=== PATIENT | female | born 1990 | race American Indian/Alaskan Native ===

== ENCOUNTER 2017-08-31 02:33 | Outpatient (CLI) | payer MEDICAID ==
[2017-08-31 02:57] VITALS: BP 108/73
== END 2017-08-31 06:10 | disposition home or self-care (01) ==
LOC: TRG 02:33
PROVIDERS: ATTEND Obstetrics & Gynecology
DX: O47.1 False labor at or after 37 completed weeks of gestation (principal); Z3A.38 38 weeks gestation of pregnancy
CPT/HCPCS: 59025

== ENCOUNTER 2017-08-31 09:06 | Inpatient (IN) | payer MEDICAID ==
[2017-08-31] MEDS ORDERED: ePHEDrine SULFATE IV PRN (09:44)
[2017-08-31] MEDS ORDERED: SUBLIMAZE IV PRN (09:44)
[2017-08-31] MEDS ORDERED: BRETHINE SUB-Q PRN (09:44)
[2017-08-31] MEDS ORDERED: XYLOCAINE 2% INFILTRATI ONE (09:44)
--- NOTE | 2017-08-31 09:52 | History and Physical Report ---
History of Present Illness Date of examination: 08/31/17 Chief complaint: labor and SROM History of present illness: 27y/o @ 38+4 weeks by stated EDC of 09/10/17 No records to review at time of admission, pt receives care @ [place] She denies any medical hx or complications with . Past History Past Medical History: no pertinent history - Obstetrical History Expected Date of Delivery: 09/10/17 Actual Gestation: 38 Week(s) 4 Day(s) : 1 Para: 0 Hx # Term Pregnancies: 0 Number of Pregnancies: 0 Spontaneous Abortions: 0 Number of Living Children: 0 Medications and Allergies Allergies Allergy/AdvReac Type Severity Reaction Status Date / Time No Known Allergies Allergy Unverified 08/31/17 02:57 Home Medications Medication Instructions Recorded Confirmed Last Taken Type Vit,Calc76/Iron/Folic 1 tab PO DAILY 08/31/17 08/31/17 08/30/17 11:00 History [Pnv 29-1 Tablet] Review of Systems All systems: negative - Vital Signs Vital signs: Vital Signs Pulse BP 84 126/77 08/31/17 09:37 08/31/17 09:37 Temp Pulse Resp BP Pulse Ox 98.4 F 84 18 126/77 08/31/17 09:41 08/31/17 09:37 08/31/17 09:41 08/31/17 09:37 - Physical Exam Breasts: Positive: normal Cardiovascular: Regular rate Lungs: Positive: Clear to auscultation, Normal air movement Abdomen: Positive: normal appearance, soft Genitourinary (Female): Positive: normal external genitalia, normal perenium Vulva: both: normal Vagina: Positive: normal moisture Uterus: Positive: normal size, normal contour Anus/Rectum: Positive: normal perianal skin Extremities: Positive: normal Deep Tendon Reflex Grade: Normal +2 - Obstetrical FHR: auscultation normal Uterine Contraction Monitor Mode: External Uterine Contraction Pattern: Regular Uterine Tone Measurement Phase: Contraction Uterine Contraction Intensity: Strong/Firm Results Result Diagrams: 08/31/17 10:00 All other labs normal. Assessment and Plan 27y/o @ 38+4 weeks, care @ [facility]. SROM @ 0800 with clear fluid, SVE 6/100 with + bloody show. Plan to admit to L&D, treat for unknown GBS , UDS since unknown to this practice and obtain records from [facility]. - Patient Problems (1) 38 weeks gestation of Current Visit: No Status: Acute (2) SROM (spontaneous rupture of membranes) Onset Date: 08/31/17 Current Visit: No Status: Acute
[2017-08-31] MEDS ORDERED: PITOCin/NS 20 UNIT/1000ML DRIP 20 UNITS/1,000 ML BAG IV SCH (10:00)
[2017-08-31] MEDS ORDERED: POLYCILLIN/NS 2 GM/100 ML 2 GM/100 ML BAG IV ONE (10:00)
[2017-08-31] MEDS ORDERED: LACTATED RINGERS 1,000 ML IV SCH (10:00)
[2017-08-31 10:43] LABS: Hematocrit 38.5 % (30.3-42.9); Hemoglobin 12.9 gm/dl (10.1-14.3); Mean Corpuscular HGB Conc 34 % (30-34); Mean Corpuscular Hemoglobin 32 pg (28-32); Mean Corpuscular Volume 94 fl (79-97); Platelet Count 158 K/mm3 (140-440); Red Blood Count 4.08 M/mm3 (3.65-5.03); Red Cell Distribution Width 13.8 % (13.2-15.2)
--- NOTE | 2017-08-31 10:53 | Procedure Note ---
OB Delivery Note - Delivery Date of Delivery: 08/31/17 ( Male) Clinical Recruiter: HARJINDER CALDERON Estimated blood loss: 200cc - Vaginal Delivery presentation: vertex Delivery position: OA Intrapartum events: none Delivery induction: none Delivery monitor: external FHT, external uterine Route of delivery: Delivery placenta: spontaneous Delivery cord: nuchal cord, 3 umbilical vessels Episiotomy: none Delivery laceration: none Anesthesia: none Delivery comments: male infant del over intact perineum, MADDY. Anterior shoulder delivered spontaneously. nuchal cord x 1 - somersaulted through. placed skin to skin on mother's abdomen. 3 vessel cord clamped and cut, placenta del intact and complete. Pit to IVF. Apgars 9/9, wt 6#5oz, EBL 200. Mother and infant remain LDR stable. - Infant A at 1 minute: 9 (6#5oz) at 5 minutes: 9 Gender: Male
[2017-08-31] MEDS ORDERED: TYLENOL PO PRN (12:26)
[2017-08-31] MEDS ORDERED: DERMOPLAST TP PRN (12:26)
[2017-08-31] MEDS ORDERED: LANSINOH TP PRN (12:26)
[2017-08-31] MEDS ORDERED: DULCOLAX PR PRN (12:26)
[2017-08-31] MEDS: MOTRIN PO SCH ×2 (12:26→18:58)
[2017-08-31] MEDS ORDERED: PHENERGAN PO PRN (12:26)
[2017-08-31] MEDS ORDERED: TUCKS PAD TP PRN (12:26)
[2017-08-31] MEDS ORDERED: ZOFRAN IV PRN (12:26)
[2017-08-31] MEDS ORDERED: BENADRYL PO PRN (12:26)
[2017-08-31] MEDS ORDERED: SODIUM CHLORIDE FLUSH SYRINGE 10 ML IV NR (12:26)
[2017-08-31] MEDS ORDERED: MILK OF MAGNESIA PO PRN (12:26)
[2017-08-31] MEDS ORDERED: AMPICILLIN/NS 1 GM/50 ML 1 GM/50 ML BAG IV SCH (14:00)
[2017-08-31 15:41] LABS: Amphetamine Screen,Urine PRESUMPTIVE NEGATIVE; Benzodiazepines Screen,Urine PRESUMPTIVE NEGATIVE; Cannabinoid Screen,Urine PRESUMPTIVE NEGATIVE; Cocaine Screen,Urine PRESUMPTIVE NEGATIVE; Methadone Screen,Urine PRESUMPTIVE NEGATIVE; Opiate Screen,Urine PRESUMPTIVE NEGATIVE
[2017-08-31 16:36] LABS: Hepatitis C Virus Antibody Non-Reactive (NonReactive)
[2017-08-31 16:59] LABS: Rubella IgG Antibody Immune (Immune)
[2017-08-31] MEDS: FEOSOL PO SCH (21:44)
[2017-08-31] MEDS: COLACE PO SCH (21:44)
[2017-08-31] MEDS ORDERED: MINERAL OIL PO PRN (22:00)
[2017-08-31 23:13] LABS: Hematocrit 36.3 % (30.3-42.9); Hemoglobin 12.1 gm/dl (10.1-14.3)
[2017-09-01] MEDS: MOTRIN PO SCH ×4 (00:16→18:13)
--- NOTE | 2017-09-01 06:41 | Progress Note ---
Assessment and Plan - Patient Problems (1) (normal spontaneous vaginal delivery) Onset Date: ~08/31/17 Current Visit: Yes Status: Acute Plan to address problem: Pt w/o complaint VSS FF below umb Lochia scant Perineum intact H&H stable Doing well s/p vag delivery P: continue pathway Adv diet and activity d/c tomorrow baby has a 48 hr hold. Subjective - Subjective Date of service: 09/01/17 (no c/o voiced) Principal diagnosis: s/p Day # 1 Patient reports: appetite normal, voiding normally, pain well controlled, ambulating normally [place]: doing well Objective - Vital Signs Latest vital signs: Vital Signs Temp Pulse Resp BP BP Pulse Ox 09/01/17 05:25 20 09/01/17 00:16 18 09/01/17 00:00 98.4 F 92 H 20 104/63 96 08/31/17 20:05 98.0 F 96 H 20 106/66 97 08/31/17 18:02 98.2 F 92 H 18 109/63 98 08/31/17 12:07 98.5 F 80 20 109/64 99 08/31/17 11:52 80 106/59 08/31/17 11:50 98.3 F 18 08/31/17 11:37 78 106/57 08/31/17 11:22 85 112/61 08/31/17 11:07 91 H 112/68 08/31/17 10:52 92 H 111/70 08/31/17 09:58 85 132/77 08/31/17 09:41 98.4 F 18 08/31/17 09:37 84 126/77 Intake and Output 08/31/17 08/31/17 09/01/17 14:59 22:59 06:59 Intake Total 240 120 Output Total 750 400 Balance -510 -280 Intake: Oral 240 120 Output: Urine 750 400 Void 750 400 Other: Total, Intake Amount 240 120 Total, Output Amount 400 400 # Voids Void 1 Weight 150 lb Estimated Blood Loss 200 Patient Weight 09/01/17 06:59 Weight 150 lb - Exam Breasts: Present: normal Cardiovascular: Present: Regular rate Lungs: Present: Normal air movement Abdomen: Present: normal appearance, soft, normal bowel sounds Vulva: both: normal Uterus: Present: normal, fundal height below umbilicus Extremities: Present: normal Incision: Present: normal, dry, intact - Labs Labs: Abnormal lab results 08/31/17 Range/Units 10:00 WBC 13.4 H (4.5-11.0) K/mm3
[2017-09-01] MEDS ORDERED: PRENATAL VITAMIN PO SCH (10:00)
[2017-09-01] MEDS ORDERED: M-M-R II VACCINE SUB-Q ONE (10:53)
[2017-09-01] MEDS: FEOSOL PO SCH ×2 (11:24→22:37)
[2017-09-01] MEDS: COLACE PO SCH ×2 (11:25→22:37)
[2017-09-02] MEDS: MOTRIN PO SCH ×3 (00:36→14:40)
--- NOTE | 2017-09-02 06:49 | Discharge Summary ---
Providers - Providers Date of Admission: 08/31/17 09:56 Date of discharge: 09/02/17 (agrees to d/c) Attending physician: LISANDRO SHETTY 08/31/17 12:26 Consult to Commercial [employer]er [CONS] Routine Reason For Exam: assistance with , SNS Primary care physician: TI PARKER Hospitalization Reason for admission: active labor Delivery: Episiotomy: none Laceration: none Incision: normal Other procedures: none complications: none Discharge diagnosis: IUP at term delivered [place] baby: male Hospital course: uncomplicated vaginal delivery Pt w/o complaints VSS FF below umb Lochia small Perineum intact Asymptomatic anemia Doing well s/p vag delivery P: d/c today with instructions RTO 1 week circ and 4 weeks pp care. Condition at discharge: Good Disposition: DC-01 TO HOME OR SELFCARE - Discharge Diagnoses (1) (normal spontaneous vaginal delivery) Status: Acute Comment: RTO 4 weeks PP care Plan - Provider Discharge Summary Activity: routine, no sex for 6 weeks, no heavy lifting 4 weeks, no strenuous exercise Diet: routine Instructions: routine Additional instructions: [] Smoking cessation referral if applicable(refer to patient education folder for contact #) [] Refer to [facility]'s [facility] Booklet Call your doctor immediately for: * Fever > 100.5 * Heavy vaginal bleeding ( >1 pad per hour) * Severe persistent headache * Shortness of breath * Reddened, hot, painful area to leg or breast * Drainage or odor from incision. * Keep incision clean and dry at all times and follow doctor's instructions regarding bathing/showering - Follow up plan Follow up: TI PARKER MD [Primary Care Provider] - 7 Days GENIA LOVING CNM [Advanced Practice Nurse] - 7 Days (Please call [phone] to schedule your visit in 4 weeks and your son's circumcision in 1 week. Bring the EMLA cream with you to his visit. Do NOT use at home. Call with any concerns. [facility] [address], [address] [facility] [id number])
[2017-09-02 16:48] VITALS: BP 100/72
== END 2017-09-02 18:06 | disposition home or self-care (01) | DRG 775 ==
LOC: TRG 09:06 → LD 09:56 → OB 14:01
PROVIDERS: ADMIT Obstetrics & Gynecology; ATTEND Obstetrics & Gynecology
PROC: 10E0XZZ Delivery of Products of Conception, External Approach (ICD-10-PCS; principal; 2017-08-31)
PROC: 3E0234Z Introduction of Serum, Toxoid and Vaccine into Muscle, Percutaneous Approach (ICD-10-PCS; 2017-09-01)
DX: O69.81X0 Labor and delivery complicated by cord around neck, without compression, not applicable or unspecified (principal); Z3A.38 38 weeks gestation of pregnancy; Z37.0 Single live birth; Z23 Encounter for immunization; O99.02 Anemia complicating childbirth; D64.9 Anemia, unspecified
CPT/HCPCS: 36415; 80307; 85014; 85018; 85027; 85660; 86592; 86706; 86762; 86803; 86850; 86900; 86901; 87806; 99211; A6250; G0463; J0290; J2590; J3010; J7120